=== PATIENT | male | born 1955 | race Two or more races ===

== ENCOUNTER → 2021-02-25 | Outpatient (CLI) | payer MEDICAID | END | disposition home or self-care (01) | LOC: LABWHC1 08:49 | PROVIDERS: ATTEND Surgery Plastic and Reconstructive Surgery | DX: I10 Essential (primary) hypertension (principal) | CPT/HCPCS: 93005 ==

== ENCOUNTER → 2021-03-06 | Outpatient (CLI) | payer MEDICAID ==
--- NOTE | 2021-03-06 16:37 | US ---
EXAMINATION TYPE: US mass soft tissue chest/back DATE OF EXAM: 03/06/2021 COMPARISON: NONE CLINICAL HISTORY: R22.32 Swelling/mass/lump Left shoulder. Patient states lump posterior left upper back/shoulder area for 30 years. The area is starting to bother the patient. Sonographic study was performed over palpable, left posterior upper back/shoulder. There is a heterog eneous soft tissue structure measuring 2.7 x 1.2 x 3.9 cm. The contralateral side was scanned for com parison purposes. IMPRESSION: 1. Lobulated heterogeneous soft tissue structure at the site of palpable lump in the left shoulder/up per back region measuring 2.7 cm. This may represent a lipoma but is indeterminant on this study. An MRI or surgical excision may be helpful for definitive evaluation.
== END | disposition home or self-care (01) ==
LOC: RADUSWWP 13:39
PROVIDERS: ATTEND Surgery Plastic and Reconstructive Surgery
DX: R22.32 Localized swelling, mass and lump, left upper limb (principal)

== ENCOUNTER → 2021-04-29 | Day surgery (SDC) | payer MEDICAID ==
[2021-04-26 12:38] VITALS: BMI 31.7
[~2021-04-29] MED LIST: ACETAMINOPHEN TAB 500 MG TAB PO PRN; DEXAMETHASONE SOD PHOSPHATE 4 MG/ML 1 ML VIAL IV ONE; HEPARIN SODIUM,PORCINE/PF 5,000 UNIT/0.5 ML SYRINGE SQ PRN; HYDROmorphone 0.5 MG/0.5 ML SYRINGE IVP PRN; IBUPROFEN 400 MG TAB PO STA; LACTATED RINGERS 1,000 ML IV ONE; LACTATED RINGERS 1,000 ML IV SCH; LIDOCAINE 1% INJ 10MG/ML (20 ML MDV) ONE; LIDOCAINE 1%-EPI 1:100,000 20 ML VIAL SQ ONE; MELOXICAM 7.5 MG TAB PO PRN; MIDAZOLAM 2 MG/2 ML VIAL ONE; ONDANSETRON 4 MG/2 ML VIAL IVP ONE; PHENYLEPHRINE-0.9% NACL SYG 1,000 MCG/10 ML SYRINGE ONE; PROPOFOL 10 MG/ML 20 ML VIAL IV ONE; Pre Op ABX Message 1 EACH MISC MISCELLANE ONE; SUCCINYLCHOLINE CHLORIDE 100 MG/5 ML SYR IV ONE; TAMSULOSIN 0.4 MG CAP.ER.24H PO PRN; ePHEDrine SULFATE/0.9% NACL/PF 50 MG/5 ML SYRINGE IV ONE; fentaNYL (PF) 50 MCG/ML 2 ML AMP ONE
--- NOTE | 2021-04-29 08:33 | P.GSHP ---
History of Present Illness H&P Date: 04/29/21 CHIEF COMPLAINT: Back mass HISTORY OF PRESENT ILLNESS: The patient is a 66 year-old male with history of mass along the mid back. He presents today for surgical excision. PAST MEDICAL HISTORY: Please see list. PAST SURGICAL HISTORY: Please see list. MEDICATIONS: Please see list. ALLERGIES: Please see list. SOCIAL HISTORY: Please see list. FAMILY HISTORY: No reports of Crohn disease or ulcerative colitis. REVIEW OF ORGAN SYSTEMS: CONSTITUTIONAL: No reports of fevers or chills. GI: Denies any blood in stools or constipation. PHYSICAL EXAM: VITAL SIGNS: Stable Musculoskeletal: No clubbing cyanosis or edema SKIN: Left upper back/shoulder 4 cm GENERAL: Well developed and in no acute distress. Pleasant. HEENT: No sclera icterus. Extraocular movements grossly intact. Moist buccal mucosa. Head is atraumatic, normocephalic. Hears conversational speech. No nasal drainage. NECK: Supple without lymphadenopathy. No JV distention. CHEST: Non-labored respirations and equal bilateral excursions. CARDIOVASCULAR: Regular rate and rhythm. Palpable 2+ radial pulses. ABDOMEN: Soft. Non-tender. Nondistended. NEUROLOGIC: No focal or lateralizing signs. PSYCH: Appropriate affect. Alert and oriented to person, place and time. ASSESSMENT: 1. Left upper back/shoulder PLAN: 1. Will proceed of excision of subcutaneous tumor along the back. 2. DVT prophylaxis. 3. Antibiotic prophylaxis. 4. Time of recovery, at least one week. 5. Recommend general for excision of the tissue mass Past Medical History Past Medical History: Hyperlipidemia Additional Past Medical History / Comment(s): Chronic knee pain. Lipoma on left upper back. History of Any Multi-Drug Resistant Organisms: None Reported Past Surgical History: Tonsillectomy Additional Past Surgical History / Comment(s): Colonoscopy Past Anesthesia/Blood Transfusion Reactions: No Reported Reaction, Motion Sickness Smoking Status: Never smoker - Past Family History Mother Family Medical History: No Reported History Medications and Allergies Home Medications Medication Instructions Recorded Confirmed Type Glucosam/Carlton-Msm1/C/Phan/Bosw 1 each PO DAILY 04/26/21 04/26/21 History [Glucosamine-Chondroitin Tablet] Ibuprofen [Advil] 600 mg PO Q8HR PRN 04/26/21 04/26/21 History Ibuprofen [Motrin] 800 mg PO Q8H PRN 04/26/21 04/26/21 History Melatonin 5 mg PO HS 04/26/21 04/26/21 History Multivitamins, Thera [Multivitamin 1 tab PO DAILY 04/26/21 04/26/21 History (formulary)] Sildenafil Citrate [Viagra] 50 mg PO ONCE PRN 04/26/21 04/26/21 History Triamcinolone Acetonide [Nasacort] 1 spray EA NOSTRIL DAILY 04/26/21 04/26/21 History Vitamin E (Unknown Dose) 1 tab PO DAILY 04/26/21 History Allergies Allergy/AdvReac Type Severity Reaction Status Date / Time No Known Allergies Allergy Verified 04/26/21 12:16
[2021-04-29 09:22] LABS: Basophils % (A) 1 %; Eosinophils # (A) 0.2 k/uL (0-0.7); Eosinophils % (A) 4 %; HCT 44.3 % (39.0-53.0); HGB 15.1 gm/dL (13.0-17.5); Lymphocytes # (A) 1.8 k/uL (1.0-4.8); Lymphocytes % (A) 34 %; MCH 29.9 pg (25.0-35.0); MCHC 34.1 g/dL (31.0-37.0); MCV 87.7 fL (80.0-100.0); Mean Platelet Volume 6.9; Monocytes # (A) 0.3 k/uL (0-1.0); Monocytes % (A) 6 %; Neutrophils # (A) 2.7 k/uL (1.3-7.7); Neutrophils % (A) 51 %; Platelet Count 214 k/uL (150-450); RBC 5.05 m/uL (4.30-5.90); RDW 13.5 % (11.5-15.5); WBC 5.2 k/uL (3.8-10.6)
[2021-04-29 09:41] LABS: ALT 24 U/L (4-49); AST 35 U/L (17-59); African American GFR (CKD) >90 (>60 ml/min/1.73 sqM); Albumin 4.3 g/dL (3.5-5.0); Alkaline Phosphatase 79 U/L (38-126); Anion Gap 8 mmol/L; Blood Urea Nitrogen 19 mg/dL (9-20); Calcium 9.4 mg/dL (8.4-10.2); Carbon Dioxide 24 mmol/L (22-30); Chloride 108 mmol/L (98-107); Glucose 128 mg/dL (74-99); Non-African American GFR(CKD) 88 (>60 ml/min/1.73 sqM); Potassium 4.1 mmol/L (3.5-5.1); Sodium 140 mmol/L (137-145); Total Bilirubin 1.3 mg/dL (0.2-1.3); Total Protein 7.1 g/dL (6.3-8.2)
[2021-04-29 10:58] VITALS: TEMP 96.9
--- NOTE | 2021-04-29 11:09 | P.OP ---
Date of Procedure: 04/29/21 Description of Procedure: SURGEON: ANGELIA KIM MD NEGOTIATOR: None. PREOPERATIVE DIAGNOSES: 1. Left upper back tumor 2. Obesity due to excess calories, BMI 32.4 POSTOPERATIVE DIAGNOSES: 1. Deep subcutaneous left upper back tumor, 6 x 4 cm 2. Obesity due to excess calories, BMI 32.4ase PROCEDURES PERFORMED: 1. Excision of deep subcutaneous left upper back mass, 6 x 4 cm 2. Complex four layer closure left upper back incision, 6 -cm Anesthesia: GETA, local Estimated Blood Loss (ml): 5 Pathology: other (back mass, long superior, short lateral) Condition: stable Disposition: same day COMPLICATIONS: None. Operative Findings: 1. Excision of deep subcutaneous lipoma left upper back tumor 6 x 4 cm INDICATIONS: The patient is a 66-year-old male who presents with symptomatic left upper back tumor. Benefits and risks of surgical intervention were described including bleeding, infection, seroma, pain and recurrence. Informed consent was obtained. DESCRIPTION OR PROCEDURE: In the preoperative area, the area of concern was marked with indelible marker. Patient was brought into the operating room. After general induction, he was positioned in right lateral decubitus position. The back was prepped and draped in a standard sterile fashion with ChloraPrep. Timeout protocol was confirmed with the surgical team regarding the patient's name, procedure to be performed including preoperative medications. DVT prophylaxis was confirmed. A field block was placed of the left lower back. An transverse incision using #15 blade was made along the marking into the dermis and subcutaneous tissue. Electro-Bovie cautery was used to enter deep into the deep subcutaneous tissue where a fibrous fatty multilobulated tumor was removed in total of 6 x 4 cm. 0 Vicryl for the deep subcutaneous tissue followed by 3-0 Monocryl in a running subcuticular fashion was placed along the dermis. The skin was cleansed and Exofin tape with liquid was applied for a three layer closure. The incision was covered with Optifoam dressing. At the end of the procedure, needle, sponge, and instrument count was verified correct by surgical dressing maker. The patient tolerated the procedure well. Plan - Discharge Summary Discharge Rx Participant: No New Discharge Prescriptions: New Ibuprofen 800 mg PO Q8HR PRN #30 tablet PRN Reason: Pain Acetaminophen Tab [Tylenol Tab] 1,000 mg PO Q6HR PRN #30 tablet PRN Reason: Pain Continue Melatonin 5 mg PO HS Sildenafil Citrate [Viagra] 50 mg PO ONCE PRN PRN Reason: erectile dysfunction Triamcinolone Acetonide [Nasacort] 1 spray EA NOSTRIL DAILY Glucosam/Carlton-Msm1/C/Phan/Bosw [Glucosamine-Chondroitin Tablet] 1 each PO DAILY Multivitamins, Thera [Multivitamin (formulary)] 1 tab PO DAILY Vitamin E (Unknown Dose) 1 tab PO DAILY Discontinued Ibuprofen [Motrin] 800 mg PO Q8H PRN PRN Reason: Pain Ibuprofen [Advil] 600 mg PO Q8HR PRN PRN Reason: Pain Discharge Medication List Glucosam/Carlton-Msm1/C/Phan/Bosw [Glucosamine-Chondroitin Tablet] 1 each PO DAILY 04/26/21 [History] Melatonin 5 mg PO HS 04/26/21 [History] Multivitamins, Thera [Multivitamin (formulary)] 1 tab PO DAILY 04/26/21 [History] Sildenafil Citrate [Viagra] 50 mg PO ONCE PRN 04/26/21 [History] Triamcinolone Acetonide [Nasacort] 1 spray EA NOSTRIL DAILY 04/26/21 [History] Vitamin E (Unknown Dose) 1 tab PO DAILY 04/26/21 [History] Acetaminophen Tab [Tylenol Tab] 1,000 mg PO Q6HR PRN #30 tablet 04/29/21 [Rx] Ibuprofen 800 mg PO Q8HR PRN #30 tablet 04/29/21 [Rx] Follow up Appointment(s)/Referral(s): Angelia Kim MD [STAFF PHYSICIAN] - 05/07/21 Patient Instructions/Handouts: Excision of Skin Lesion (DC) Activity/Diet/Wound Care/Special Instructions: NO WIDE MOTIONS OF THE SHOULDERS/ARMS FOR 1 WEEK, until 05/06/21 NO EXTREME STRETCHING OF THE BACK See instructions on dressing. DO NOT REMOVE DRESSING. No lifting over 10 pounds in 2 weeks, MAY 13February shower. No bath tub soaks for two weeks, MAY 13 Diet as tolerated. Discharge Disposition: HOME SELF-CARE
[2021-04-29 11:40] VITALS: RESP 18
[2021-04-29 11:53] VITALS: BP 126/76; PULSE 79
== END | disposition home or self-care (01) ==
LOC: OR 08:23
PROVIDERS: ATTEND Surgery Plastic and Reconstructive Surgery
DX: D17.1 Benign lipomatous neoplasm of skin and subcutaneous tissue of trunk (principal); E78.5 Hyperlipidemia, unspecified; G89.29 Other chronic pain; M25.569 Pain in unspecified knee; F17.299 Nicotine dependence, other tobacco product, with unspecified nicotine-induced disorders; Z98.890 Other specified postprocedural states; Z90.89 Acquired absence of other organs; Z97.2 Presence of dental prosthetic device (complete) (partial); Z79.899 Other long term (current) drug therapy
CPT/HCPCS: 88305; 80053; 85025; 88342; 88341; 21931; 13101; J2250; J0690; J2405; J2001; J3010; J2370; J0330; J2704; J1644

== ENCOUNTER → 2021-11-13 | Outpatient (CLI) | payer MEDICAID ==
--- NOTE | 2021-11-13 07:42 | CT ---
EXAMINATION TYPE: CT sinus wo con DATE OF EXAM: 11/13/2021 COMPARISON: NONE HISTORY: Sinusitis per order CT DLP: 635.1 mGycm. Automated Exposure Control for Dose Reduction was Utilized. TECHNIQUE: CT scan of the sinuses is performed without contrast, axial images are obtained, coronal r eformatted images are also reviewed. FINDINGS: Minimal mucosal thickening bilateral maxillary sinuses. Patchy opacification in the right s ided anterior ethmoid bulla or possibly slightly medial position Pranav cell axial image 26 otherwis e paranasal sinuses are clear The ostiomeatal complex is patent bilaterally on coronal image 19. Nasa l septum slightly deviated to left of midline anteriorly. Visualized portion of mastoid air cells show no abnormal opacification. The globes are intact bilate rally. Visualized brain parenchyma shows age related atrophy. IMPRESSION: Focal right anterior ethmoid bulla acute sinusitis.
== END | disposition home or self-care (01) ==
LOC: RADCTMAIN 06:50
PROVIDERS: ATTEND Otolaryngology
DX: J01.20 Acute ethmoidal sinusitis, unspecified (principal)
CPT/HCPCS: 70486